=== PATIENT | male | born 1955 | race Caucasian/White ===

== ENCOUNTER 2022-10-17 11:00 | Outpatient (CLI) | payer MEDICARE ==
[2022-10-17 12:24] LABS: #Basophils 0.1 10x3/uL (0.0-0.2); #Eosinphils 0.2 10x3/uL (0.0-0.5); #Monocytes 0.7 10x3/uL (0.0-1.1); #Neutrophils 4.3 10x3/uL (1.5-8.4); %Basophils 0.9 % (0.0-2.0); %Eosinophils 2.3 % (0.0-6.0); %Lymphocytes 38.9 % (18.0-47.0); %Monocytes 7.9 % (0.0-10.0); %Neutrophils 49.4 % (40.0-75.0); Hemoglobin 15.4 g/dL (13.5-17.5); Mean Corpuscular HGB CONC 34.1 g/dL (32.0-36.0); Mean Corpuscular Hemoglobin 30.7 pg (27.0-33.0); Mean Platelet Volume 9.3 fl (7.4-10.4); Platelet Count 437 10x3/uL (150-450); RBC Distribution Width 13.8 % (11.5-14.5); Red Blood Cell (RBC) Count 5.02 10x6/uL (4.32-5.72); White Blood Cell (WBC) Count 8.7 10x3/uL (3.5-10.5)
[2022-10-17 12:38] LABS: Anion Gap 14 mmol/L (10-20); BUN (Urea Nitrogen) 20 mg/dL (8.4-25.7); Calc. Creatinine Clearance 0 mL/min (70-130); Carbon Dioxide 26 mmol/L (23-31); Chloride 103 mmol/L (98-107); Estimated GFR 75; Glucose 115 mg/dL (80-115); Potassium 4.3 mmol/L (3.5-5.1); Sodium 139 mmol/L (136-145)
== END 2022-10-17 11:01 | disposition home or self-care (01) ==
LOC: LABBT 11:00
PROVIDERS: ATTEND Specialist
DX: Z01.812 Encounter for preprocedural laboratory examination (principal); K40.90 Unilateral inguinal hernia, without obstruction or gangrene, not specified as recurrent
CPT/HCPCS: 80048; 85025

== ENCOUNTER 2022-10-19 05:56 | Day surgery (SDC) | payer MEDICARE ==
[2022-10-18 11:39] VITALS: BMI 20.9
[2022-10-19] MEDS ORDERED: Acetaminophen 500 MG TAB ONE (06:34)
[2022-10-19] MEDS ORDERED: Ketorolac Tromethamine 30 MG/ML VIAL ONE (06:34)
[2022-10-19] MEDS ORDERED: Bupivacaine/Epinephrine 0.25% 30 ML VIAL ONE (06:44)
[2022-10-19] MEDS ORDERED: Fentanyl 250 MCG/5 ML VIAL ONE (06:52)
[2022-10-19] MEDS ORDERED: Sodium Chloride 0.9% 100 ML ONE (07:10)
[2022-10-19] MEDS ORDERED: CEFAZOLIN 2 GM VIAL ONE (07:10)
[2022-10-19] MEDS ORDERED: NEOSTIGMINE 3 MG/3 ML SYR 3 MG/3 ML SYRINGE ONE (07:42)
[2022-10-19] MEDS ORDERED: Lidocaine 1% PF 5 ML VIAL ONE (07:42)
[2022-10-19] MEDS ORDERED: PROPOFOL 200 MG/20 ML VIAL ONE (07:42)
[2022-10-19] MEDS ORDERED: Glycopyrrolate 0.2 MG/ML 5 ML SYRINGE ONE (07:42)
[2022-10-19] MEDS ORDERED: Rocuronium Bromide 10 MG/ML (10ML VIAL) ONE (07:42)
[2022-10-19] MEDS ORDERED: Dexamethasone 20 MG/5 ML VIAL ONE (07:42)
[2022-10-19] MEDS ORDERED: ePHEDrine 50 MG/ML VIAL ONE (07:42)
[2022-10-19] MEDS ORDERED: Ondansetron PF 4 MG/2 ML Vial ONE (07:42)
[2022-10-19] MEDS ORDERED: HYDROcodone/Acetaminophen 5/325 mg Tablet ONE (10:38)
== END 2022-10-19 11:46 | disposition home or self-care (01) ==
LOC: SDC 05:56
PROVIDERS: ATTEND Specialist
PROC: 0YU54JZ Supplement Right Inguinal Region with Synthetic Substitute, Percutaneous Endoscopic Approach (ICD-10-PCS; principal; 2022-10-19)
PROC: 8E0W4CZ Robotic Assisted Procedure of Trunk Region, Percutaneous Endoscopic Approach (ICD-10-PCS; 2022-10-19)
DX: K40.90 Unilateral inguinal hernia, without obstruction or gangrene, not specified as recurrent (principal); N40.0 Benign prostatic hyperplasia without lower urinary tract symptoms; Z87.891 Personal history of nicotine dependence; Z79.899 Other long term (current) drug therapy
CPT/HCPCS: 49650; C1781; J1100; J1885; J2405; J2704; J3010; J3490

== ENCOUNTER 2024-10-30 11:33 | Outpatient (CLI) | payer MEDICARE ==
[2024-10-30 13:16] LABS: #Basophils 0.08 10x3/uL (0.0-0.2); %Eosinophils 2.7 % (0.0-10.0); %Lymphocytes 37.8 % (21.0-51.0); %Monocytes 7.3 % (0.0-10.0); %Neutrophils 50.8 % (42.0-75.0); Hematocrit 45.6 % (42.0-52.0); Hemoglobin 15.1 g/dL (14.0-18.0); Mean Corpuscular HGB CONC 33.1 g/dL (32.0-36.0); Mean Corpuscular Hemoglobin 29.6 pg (27.0-31.0); Mean Corpuscular Volume 89.4 fL (78.0-98.0); Mean Platelet Volume 9.4 fL (7.4-10.4); Platelet Count 337 10x3/uL (130-400); RBC Distribution Width 13.4 % (11.5-14.5)
[2024-10-30 13:24] LABS: Bacteria/HPF None Seen HPF (None Seen); Bilirubin Negative (Negative); Blood, Urine 1+ (Negative); Clarity Clear (Clear); Glucose, Urine (Dipstick) Normal (Negative); Ketone, Urine Negative (Negative); Leukocyte 25 Leu/uL (Negative); Nitrite Negative (Negative); Protein, Urine (Dipstick) Negative (Neg-Trace); RBC/HPF 0-3 HPF (0-3); Specific Gravity, Urine 1.017 (1.002-1.036); Squamous Epithelial 0-3 HPF (0-3); Urobilinogen Normal mg/dL (Less than 2); WBC/HPF 0-3 HPF (0-3); pH, Urine 5.5 (5.0-9.0)
[2024-10-30 13:32] LABS: Anion Gap 12 mmol/L (10-20); BUN (Urea Nitrogen) 14 mg/dL (8.4-25.7); Calc. Creatinine Clearance 0 mL/min (70-130); Calcium 9.6 mg/dL (7.8-10.44); Carbon Dioxide 26 mmol/L (23-31); Chloride 108 mmol/L (98-107); Estimated GFR 76; Glucose 97 mg/dL (80-115); Potassium 3.9 mmol/L (3.5-5.1); Sodium 142 mmol/L (136-145)
[2024-10-30 13:57] LABS: Prothrombin Time 13.1 sec (12.0-14.7)
[2024-10-30 13:58] LABS: PTT 28.3 sec (22.9-36.1)
== END 2024-10-30 11:34 | disposition home or self-care (01) ==
LOC: LABBT 11:33
PROVIDERS: ATTEND Urology
DX: Z01.818 Encounter for other preprocedural examination (principal); E78.5 Hyperlipidemia, unspecified; N40.1 Benign prostatic hyperplasia with lower urinary tract symptoms; R97.20 Elevated prostate specific antigen [PSA]; F12.90 Cannabis use, unspecified, uncomplicated; Z72.0 Tobacco use
CPT/HCPCS: 71046; 80048; 81001; 85025; 85610; 85730; 87086; 93005; 93010